=== PATIENT | female | born 2000 | race Hispanic/Latino ===

== ENCOUNTER 2025-03-29 09:32 | Emergency (ER) | payer SELFPAY ==
[2025-03-29 09:37] VITALS: BP 116/66
--- NOTE | 2025-03-29 10:20 | ED.GENMED ---
History of Present Illness
General
Chief Complaint: Skin Problem
Source: patient
Exam Limitations: none
Time Seen by Provider: 03/29/25 10:10
History of Present Illness
History of Present Illness:
See MDM
Past History
Past History
ED Past Medical History: None
ED Past Surgical History: None
Social History
Tobacco: Non-smoker
Alcohol: None
Phy Exam
Physical Exam
Physical Exam:
See MDM
Course
Orders/Labs/Results
Orders:
Orders
03/29/25 10:19
Dexamethasone Pf [Decadron] 10 mg PO NOW STA
HydrOXYZINE [Atarax] 25 mg PO NOW STA
Vital Signs
Initial and Last Documented VS:
Initial Vital Signs
Temp Pulse Resp BP Pulse Ox
98.9 F 78 16 116/66 98
03/29/25 09:37 03/29/25 09:37 03/29/25 09:37 03/29/25 09:37 03/29/25 09:37
Last Documented Vital Signs
Temp Pulse Resp BP Pulse Ox
98.9 F 78 16 116/66 98
03/29/25 09:37 03/29/25 09:37 03/29/25 09:37 03/29/25 09:37 03/29/25 09:37
MDM/Problems Addressed
Differential Diagnosis Includes:
Note:
CHIEF COMPLAINT(S)
Rash
HISTORY OF PRESENT ILLNESS
The patient is a 25-year-old female who presents with a rash occurring diffusely over the body, including the abdomen and arms. The patient reports no changes in diet or exposure to new foods. No involvement of the palms or soles is noted. The
patient states that no other household members are affected. The rash has an uncertain etiology but is suspected to be due to an allergic reaction.
PHYSICAL EXAM
General: Alert, no acute distress.
Skin: Urticarial hives to her chest, abdomen and arms. Spares mucosa and palms
Head: Normocephalic, atraumatic
Neck: Appears supple, trachea midline.
Eyes, Ears, Nose, Mouth, and Throat: Moist mucous membranes
Cardiovascular: No signs of cyanosis
Respiratory: Respirations are non-labored.
Abdomen: Non-distended
Musculoskeletal: No deformities
Neurological: No focal neurological deficit observed.
Psychiatric: Cooperative, appropriate mood and affect.
PLAN
The patient will be treated with a steroid and an anti-itch medication to address the symptoms of the rash, suspected as possibly allergic in nature.
FOLLOW-UP INSTRUCTIONS
Since the patient does not have a primary care doctor, arrangements will be made for follow-up with a designated physician. The patient will be given a contact number for a follow-up appointment.
MEDICAL DECISION MAKING
- Number and Complexity of Problems Addressed: Suspected allergic reaction rash, considering a broad differential diagnosis for rash without a clear etiology.
- Risk: Prescriptions for steroids and anti-itch medication.
DIAGNOSIS
- Rash due to suspected allergic reaction (L27.1 - Localized skin eruption due to drugs and medicines taken internally)
Disposition:
SUMMARY OF ENCOUNTER
The patient, a 25-year-old female, presented with a diffuse rash over the chest, back, and extremities persisting since Tuesday. She denies any recent sick contacts, new foods, or changes in detergents or soaps as potential triggers. The rash spares
the mucosa and palms. The patient appears well and is non-toxic. The rash is suspected to be of allergic origin. Management in the emergency department included administering steroids and hydroxyzine to address symptoms. Follow-up with primary care
and return precautions were discussed with the patient, who feels comfortable to be discharged.
DISPOSITION
Discharge
EMERGENCY TREATMENTS ADMINISTERED
Steroids and hydroxyzine (Adirax).
PLAN
Continue treatment with hydroxyzine and steroids to address allergic rash symptoms. Follow up with a designated primary care physician, as the patient does not have one currently. Provide the patient with a contact number to arrange a follow-up
appointment.
FOLLOW-UP INSTRUCTIONS
The patient is to follow up with a designated primary care physician, with contact information provided for scheduling an appointment.
MEDICATION RECONCILIATION
A dose of steroids and hydroxyzine (Adirax) was administered in the emergency department.
MEDICAL DECISION MAKING
- Number and Complexity of Problems Addressed: Suspected allergic reaction rash, considering a broad differential diagnosis for rash without a clear etiology.
- Data:
- Category 1: No external records or independent historian information reviewed.
- Risk: Prescription drug management involved with steroids and hydroxyzine, considered safe for outpatient management given stable condition.
DIAGNOSIS
Rash due to suspected allergic reaction (L27.1 - Localized skin eruption due to drugs and medicines taken internally).
*Pulse Oximetry
SaO2: 98
Oxygen Mode of Delivery: Room air
Patient hypoxic: no
*Critical Care Note
Total Time (30-74mins, 75-104mins- exclusive of procedures): Not Applicable
ED Attending Note
-
Portions of this chart may have been created with voice recognition software.� Occasional wrong word or��sound alike� substitutions may have occurred due to the inherent limitations of voice recognition software.
Discharge Plan
Departure
Patient Disposition: Home (Routine Discharge)
Date of Disposition: 03/29/25
Time of Disposition: 10:22
Patient with high blood pressure during this ER visit?: No
Discharge Problem:
Allergic reaction
Instructions: Skin Rash (DC)
Prescriptions:
New
prednisone 20 mg tablet
40 mg PO DAILY Qty: 10 0RF
hydroxyzine HCl 25 mg tablet
25 mg PO BID PRN (Reason: itching) Qty: 20 0RF
Referrals:
[facility] [Provider Group]
Activity Restrictions/Additional Instructions:
Please return for any worsening symptoms.
You may return at any time if you have further concerns.
Please follow up with your doctor at the first available appointment, preferably this week.
Thank you for choosing [facility].
Interventions
Interventions:
*Risk Screen - Suicide Last Done: 03/29/25 10:16
*General Assessment Last Done: 03/29/25 10:16
*Neglect/Abuse Screening Last Done: 03/29/25 10:16
*ED- Fall Risk Assessment Last Done: 03/29/25 10:16
*ED COVID-19 Vaccine History Last Done: 03/29/25 10:16
*ED Influenza Vaccine History Last Done: 03/29/25 10:16
Discharge Date and Time
Print Language: TELUGU
[2025-03-29] MEDS: ATARAX 25 MG PO (10:33)
[2025-03-29] MEDS: DECADRON 10 MG PO (10:33)
== END 2025-03-29 10:50 | disposition home or self-care (01) ==
LOC: EMR 09:32
PROVIDERS: EMERGENCY PHYSICIAN Student in an Organized Health Care Education/Training Program; FAMILY PHYSICIAN Family Medicine
DX: T78.40XA Allergy, unspecified, initial encounter (principal); X58.XXXA Exposure to other specified factors, initial encounter
CPT/HCPCS: 99283